=== PATIENT | female | born 1980 ===

== ENCOUNTER 2021-07-12 09:41 | Emergency (ER) | payer OTHER ==
[~2021-07-12] VITALS: Ht 162.6 cm; Wt 65.8 kg
== END 2021-07-12 13:52 ==
LOC: ER 09:41
DX: T78.49XA Other allergy, initial encounter (principal); X58.XXXA Exposure to other specified factors, initial encounter

== ENCOUNTER 2021-07-15 17:50 | Emergency (ER) | payer OTHER ==
[~2021-07-15] VITALS: Ht 162.6 cm; Wt 67.1 kg
[2021-07-15] MEDS ORDERED: BENADRYL 25 MG (18:40)
[2021-07-15] MEDS ORDERED: BETAMETHASONE V15 GM TOP (19:35)
== END 2021-07-15 20:22 | disposition home or self-care (01) ==
LOC: ER 17:50
DX: L42 Pityriasis rosea (principal)